=== PATIENT | male | born 1935 | race Caucasian/White ===

== ENCOUNTER 2017-10-05 05:27 | Day surgery (SDC) | payer OTHER, BC ==
[~2017-10-05] VITALS: Ht 180.3 cm; Wt 85.7 kg
--- NOTE | ~2017-10-05 | H ---
[facility] [place] [address] HISTORY AND PHYSICAL Name: PALMER IBARRA Room #: DEP [facility] M.R.#: [id number] Admission: 10/05/17 Attend Phys: Casey Tong MD Discharge: 10/05/17 Date of : 37 Report #: [id number] THIS REPORT FOR: //name// CC: Sergei Tong DATE OF SERVICE: 10/05/2017 This H and P is being dictated secondary to a note for medical records stating that my office history and physical dated 08/29/2017 was over 30 days old as we had done the surgery on 10/05/2017 and required redictation. I will reiterate the findings of this history and physical, but it is unchanged. HISTORY OF PRESENT ILLNESS: The patient is an 82-year-old male who had undergone a biopsy of the left mid forehead and left medial canthal region on 08/03/2017, showing basal cell carcinoma, nodule, transected. Recommendations were made for wide local excision. PAST MEDICAL HISTORY: His medical history is significant for malignant melanoma, left scalp, T1 N0 M0, Jurgen level 2, Breslow thickness 0.24 mm. This was treated with wide local excision measuring 35 x 24 mm and reconstruction with bilateral M-plasty flap. Date of surgery 02/03/2011. The patient has been free of recurrence. His past medical history is also significant for herniated disk in his neck, 03/1981; kidney stones, 03/1982; blood clots secondary to an associated ruptured Achilles tendon, 09/1990; elevated BUN; left thyroid nodule 3 mm; anticoagulation, chronic rhinitis and coronary artery disease. PAST SURGICAL HISTORY: Also prostatectomy in 08/2004 and open heart surgery in 08/2008. MEDICATIONS: Fluticasone, Azelastine nasal saline, Benicar, simvastatin, metoprolol, aspirin, stool softener, allopurinol and . ALLERGIES: None. SOCIAL HISTORY: He has a supportive family. He does not use alcohol or tobacco. He is a never smoker. FAMILY HISTORY: Mother of cancer of the colon and liver, age 65. Father with hearing loss and Alzheimer's, age 84. REVIEW OF SYSTEMS: Otherwise, negative. PHYSICAL EXAMINATION: GENERAL: Well-developed 82-year-old male. VITAL SIGNS: Blood pressure in the office 127/89, pulse of 76. [facility] [address] [place] [address] HISTORY AND PHYSICAL Name: PALMER IBARRA Room #: DEP [facility].Bobo#: [id number] Admission: 10/05/17 Attend Phys: Casey Tong MD Discharge: 10/05/17 Date of : 37 Report #: [id number] HEENT: He is normocephalic. Pupils equal, round and reactive to light. Facial exam shows a well-healed stellate scar on the scalp, just at the hairline left of midline, measuring 5 cm, with no evidence of any recurrent melanoma. The medial canthal area shows a recent biopsy site healing. No sign of infection. Otologic exam intact. Normal tympanic membrane. No middle ear effusion. Nasal exam is clear. Oral cavity, no lesions. NECK: No adenopathy or other masses. NEUROLOGIC: Cranial nerves 2-12 intact. Motor, sensory and cerebellar exams normal. ASSESSMENT: 1. Basal cell carcinoma, left medial canthus. 2. Basal cell carcinoma, left forehead. 3. History of a Jurgen level 2 lentigo malignant melanoma, left scalp, T1 N0 M0, without evidence of recurrence. 4. History of internal cardiac defibrillator placement for cardiac arrhythmia. 5. History of coronary artery disease. PLAN: Wide local excision of lesion with pathologic control and flap reconstruction of both basal cell carcinoma. I have discussed procedure, indications, alternatives, benefits and potential risks with the patient. He understands and desires to proceed. <ELECTRONICALLY SIGNED> By: Casey Tong MD 12/04/17 1641 [id number] Casey Tong MD /nt
--- NOTE | ~2017-10-05 | O ---
[facility] [place] [address] OPERATIVE REPORT Name: PALMER IBARRA Room #: DEP [facility] M..#: [id number] Admission: 10/05/17 Attend Phys: Casey Tong MD Discharge: 10/05/17 Date of : 37 Report #: [id number] THIS REPORT FOR: //name// CC: César Tong DATE OF SERVICE: 10/05/2017 SURGEON: Casey Tong MD PREOPERATIVE DIAGNOSES: 1. Basal cell carcinoma, left mid forehead. 2. Basal cell carcinoma, medial canthus. 3. History of a Jurgen level 2 lentigo malignant melanoma. POSTOPERATIVE DIAGNOSES: 1. Basal cell carcinoma, left mid forehead. 2. Basal cell carcinoma, medial canthus. 3. History of a Jurgen level 2 lentigo malignant melanoma. OPERATION PERFORMED: 1. Wide local excision, basal cell carcinoma, left mid forehead, 4 cm. 2. Complex multilayer closure, incision, left mid forehead, 4 cm. 3. Two wide local excision, basal cell carcinoma, left medial canthus times 3 excisions, 3 cm. 4. Rotation flap reconstruction, left medial canthus. INDICATIONS: The patient is an 82-year-old gentleman with a longstanding history of severe sun damaged skin. He has a history of melanoma that was excised on 02/03/2011, thus far he has been free of recurrence. He presents also with basal cell carcinoma of the left medial canthus and left mid forehead on recent biopsy done through his doctorate of chiropractic, Dr. Calabrese's office. Recommendations were made for wide local excision. PROCEDURE: The patient was brought to the operating room and placed supine on the operating table. After adequate general anesthesia was achieved via endotracheal intubation, he was turned 180 degrees. The planned incisions were marked out as a fusiform excision and injected with 1% Xylocaine with 1:100,000 epinephrine. He was then prepped and draped in a sterile fashion. The procedure began with the forehead excision, this was excised as a fusiform excision, it measured about 4 cm in length. Wide undermining was undertaken for [address] [address] OPERATIVE REPORT Name: CANDELARIASRINIVASANPALMER Room #: DEP [facility] M.R.#: [id number] Admission: 10/05/17 Attend Phys: Casey Tong MD Discharge: 10/05/17 Date of : 37 Report #: [id number] anticipation of closure. This lesion was delivered off the field as specimen to pathology. At the same time, attention was turned to the left medial canthus. An incision was then made 1.5 cm taking about 6 mm margins around the gross defect in the left medial canthus. While waiting for pathology and frozen section, wide undermining was done on the forehead. This was then closed in layers with interrupted 4-0 Vicryl deep dermal sutures and a 5-0 running nylon on skin. Mastisol and Steri-Strips were applied. Margins came back positive at the 6 o'clock margin inferior on the medial canthal excision. A second excision was then done. This also returned positive requiring a third excision creating a defect about 3 cm in the left medial canthus. Margins were finally cleared and an election was made to reconstruct this with a V-Y rotation flap reconstruction from the glabella. This was designed, injected with 1% Xylocaine with 1:100,000 epinephrine, and incised and advanced. The V-Y was then tucked into the medial canthal region for reconstruction, left pedicled on its deep blood supply. The incision was then closed as a complex closure with interrupted 5-0 Vicryl deep dermal sutures and 6-0 nylon on skin, complete closure was achieved without stress to the flap. Mastisol and Steri-Strips were applied. The patient was then returned to anesthesia, awake without difficulty, returned to recovery in good condition. Balanced salt solution was irrigated into each eye after the procedure. He tolerated the procedure well. There were no complications and the blood loss was about 30 mL. The patient will be watched until awake and stable, presuming he does well, discharged to home with plans to follow with me in 1 week. Written and verbal discharge instructions and emergency precautions have been given to his daughter. DISCHARGE MEDICATIONS: Include cephalexin 500 mg b.i.d. for 10 days, hydrocodone/acetaminophen 7.5/325 one-two q.4-6 hours p.r.n., Phenergan suppository 25 mg 1 per rectum q.4-6 hours p.r.n. He is instructed on light activity and a soft diet. He is instructed on water precautions for the incisions. <ELECTRONICALLY SIGNED> By: Casey Tong MD 10/06/17 1647 [id number] Casey Tong MD /nt
--- NOTE | ~2017-10-05 | S ---
[facility] [place] [address] SURGICAL PATH RPT PROCEDURE Name: PALMER IBARRA Room #: DEP [facility].#: [id number] Admission: 10/05/17 Date of : 37 Discharge: 10/05/17 Report #: [id number] Path Case #: [id number] PATHOLOGY REPORT COLLECTION DATE: 10/05/2017 RECEIVED DATE: 10/05/2017 SUBMITTING PHYS: Dr. Casey Tong OTHER PHYS: Dr. Sergei Estes SPECIMEN(S) RECEIVED: A.BCCA left medial canthus suture 12:00 B.Second stage margin 6:00 C.Third stage margin 6:00 D.BCCA left mid forehead suture 12:00 * * * * * * * * * * * * FINAL DIAGNOSIS: A. Skin and subcutaneous tissue, "BCCA left medial canthus suture 12:00," excision: - BASAL CELL CARCINOMA; INVOLVING THE 6:00 MARGIN. B. "Second stage margin 6:00," re-excision: - BASAL CELL CARCINOMA PRESENT. C. "Third stage margin 6:00," re-excision: - FOCAL RESIDUAL BASAL CELL CARCINOMA; NEW MARGIN FREE OF INVASIVE TUMOR. D. Skin and subcutaneous tissue, "BCCA left mid forehead suture 12:00," excision: - Previous biopsy site changes; no residual basal cell carcinoma identified. (CLW:; 10/06/2017) PATHOLOGIST: Vibha Jean Baptiste M.D. REPORT ELECTRONICALLY SIGNED BY: Vibha Jean Baptiste M.D. DATE/TIME: 10/06/2017 14:16 * * * * * * * * * * * * GROSS PATHOLOGY: A. The first specimen is received fresh from the OR labeled "Еленаsarah Palmer Haydee, BCCA left medial canthus, suture potts 12:00." It consists of an oriented circular fragment of salguero-white skin and subcutaneous tissue measuring 1.2 x 1.5 cm. It is excised to a depth of 0.5 cm. The skin is remarkable for a 0.7 cm lesion. The tag is designated 12:00. The margins are inked as follows: 12-6:00 blue, 6-9:00 black, and 9-12:00 orange. The specimen is serially sectioned and submitted for one frozen section. The frozen section is then submitted as FSA1. [address] [address] SURGICAL PATH RPT PROCEDURE Name: FREDPALMER Room #: DEP [facility]#: [id number] Admission: 10/05/17 Date of : 37 Discharge: 10/05/17 Report #: [id number] Path Case #: [id number] B. The second specimen is received fresh from the OR labeled "ЕленаsarahPalmer, second stage margin 6:00." It consists of a linear portion of skin and subcutaneous tissue measuring 1.6 x 0.3 cm. It is excised to a depth of 0.5 cm. The new margin is inked blue. The entire specimen is submitted for one frozen section. The frozen section is then submitted as FSB1. C. The third specimen is received fresh from the OR labeled "Palmer Ibarra, third stage 6:00 margin." It consists of a triangular portion of skin and subcutaneous tissue measuring 1.0 x 0.9 cm. It is excised to a depth of 0.4 cm. the old margin is inked black and the new margin is inked blue. The specimen is bisected entirely submitted for one frozen section. The frozen section is then submitted as FSC1. D. The fourth specimen is received fresh from the OR labeled "Palmer Ibarra, BCCA left mid forehead-suture potts 12:00." It consists of an oriented ellipse of salguero-white skin and subcutaneous tissue measuring 3.5 x 1.1 cm. It is excised to a depth of 0.6 cm. The skin is remarkable for a 0.9 cm healed scar. The suture is designated 12:00. The margins are inked as follows: 9-12-3:00 blue, 3-6:00 black, and 6-9:00 orange. The specimen is serially sectioned and the tips and two central sections are submitted for one frozen section. The frozen section is then submitted as FSD1. The unfrozen tissue is entirely submitted as D2. (CLW:mgr; 10/05/2017) FROZEN SECTION DIAGNOSIS: (Mic Jean Baptiste M.D.) FSA1, "BCCA left medial canthus": - Tumor present at 6:00. FSB1, "Second stage margin 6:00": - Tumor present. FSC1, "Third stage margin 6:00": - Margin negative for invasive tumor. FSD1, "BCCA left mid forehead": - Previous biopsy site changes, margins free of invasive tumor. The case is discussed with Dr. Casey Tong in the operating room immediately following the frozen section and a written report is placed in the patient's chart. (CLW:mgr; 10/05/2017) Testing performed by [facility] at [address] , [place] [address] CLINICAL HISTORY: BCCA of medial canthus left, BCCA left forehead INITIAL CPT CODE(S): [address] [address] SURGICAL PATH RPT PROCEDURE Name: APLMER IBARRA Room #: DEP [facility].#: [id number] Admission: 10/05/17 Date of : 37 Discharge: 10/05/17 Report #: [id number] Path Case #: [id number] A; [id number] B; [id number] C; [id number] D; [id number] Professional services performed by [facility] at [facility] [address] [place] [address] Technical services performed by [facility] at [address] [place] [address], [facility] [address] [address]. [facility] [address] [place] [address] PHONE: [phone] DIRECTOR: Lincoln Quinn M.D. * * * END OF REPORT * * *
[~2017-10-05 05:27] MED LIST: ADULT LOW DOSE81 MG PO; ALLOPURINOL 10100 M1 PO; AZELASTINE137 MCG/0. NASAL; BENICAR40 MG PO; CICLOPIROX120 ML TOP; ELIDEL100 GM TOP; FLONASE 0.05%50 MCG NASAL; HYDROXYCHLOROQ200 M1 PO; SENOKOT-S1 TA1 PO; STOOL SOFTENER100 M1 PO; TOPROL XL25 MG PO; TRIAMCINOLONE A80 G2 TOP; ZOCOR 20 MG TAB20 M1 PO
== END 2017-10-05 15:20 | disposition home or self-care (01) ==
LOC: OR 05:27 → TBA 05:27 → OR 14:56
DX: C44.319 Basal cell carcinoma of skin of other parts of face (principal); C44.119 Basal cell carcinoma of skin of left eyelid, including canthus; I10 Essential (primary) hypertension; E78.5 Hyperlipidemia, unspecified; M10.9 Gout, unspecified; I25.2 Old myocardial infarction; Z85.46 Personal history of malignant neoplasm of prostate; Z85.820 Personal history of malignant melanoma of skin; Z87.442 Personal history of urinary calculi; Z98.890 Other specified postprocedural states; Z79.82 Long term (current) use of aspirin; Z79.899 Other long term (current) drug therapy
CPT/HCPCS: 50010; 50101; 50386; 50398; 56524; 56525; 56526; 56528; 62110; 62900; 70005